=== PATIENT | female | born 1995 | race Caucasian/White ===

== ENCOUNTER → 2023-12-18 15:21 | Outpatient (REF) | payer OTHER, SELFPAY | LOC: RAD 15:21 | PROVIDERS: ATTENDING PHYSICIAN Physician Assistant Medical | DX: Z00.00 Encounter for general adult medical examination without abnormal findings (principal); M54.6 Pain in thoracic spine | CPT/HCPCS: 72072 ==

== ENCOUNTER → 2023-12-26 15:46 | Outpatient (REF) | payer OTHER, SELFPAY | LOC: PAVMRI 15:46 | PROVIDERS: ATTENDING PHYSICIAN Physician Assistant Medical | DX: R42 Dizziness and giddiness (principal); R51.9 Headache, unspecified | CPT/HCPCS: 70551 ==

== ENCOUNTER → 2024-04-03 09:05 | Outpatient (REF) | payer OTHER, SELFPAY | LOC: RAD 09:05 | PROVIDERS: ATTENDING PHYSICIAN Physician Assistant Medical | DX: S09.90XA Unspecified injury of head, initial encounter (principal) | CPT/HCPCS: 70450 ==